=== PATIENT | male | born 1990 | race African-American/Black ===

== ENCOUNTER 2017-04-25 22:12 | Emergency (ER) | payer OTHER ==
[2017-04-26 01:25] VITALS: BP 128/71
--- NOTE | 2017-04-26 01:29 | ED ---
Laceration/Wound HPI - HPI Summary HPI Summary: Patient arrives from [address] [place] [address] with a 6 inch laceration to the right side of the face involving the right ear. Moderate amount of blood loss. Tetanus not UTD. Denies pain at this time. He states he fell onto the metal toilet and cut his face. He denies any other complaints or symptoms. Otherwise healthy. Takes no medications, has no allergies. - History of Current Complaint Stated Complaint: HEAD INJURY Time Seen by Provider: 04/25/17 22:14 Hx Obtained From: Patient Mechanism of Injury: Sharp/Blunt Trauma Onset/Duration: Sudden Onset Aggravating: Movement Alleviating: Compression Timing: Constant Onset Severity: Mild Current Severity: None Pain Intensity: 0 Pain Scale Used: 0-10 Numeric - Allergy/Home Medications Allergies/Adverse Reactions: Allergies Allergy/AdvReac Type Severity Reaction Status Date / Time No Known Allergies Allergy Verified 04/26/17 01:05 PMH/Surg Hx/FS Hx/Imm Hx Previously Healthy: Yes - Immunization History Date of Tetanus Vaccine: unknown Hx Pertussis Vaccination: No Immunizations Up to Date: Unable to Obtain/Confirm Infectious Disease History: No Infectious Disease History: Denies: Traveled Outside the [place] in Last 30 Days - Social History Occupation: Unemployed Lives: Alone - inmate Alcohol Use: Occasionally Hx Substance Use: No Substance Use Type: Reports: None Hx Tobacco Use: No Smoking Status (MU): Never Smoked Tobacco Review of Systems Constitutional: Negative Negative: Fever, Chills, Fatigue Eyes: Negative Cardiovascular: Negative Respiratory: Negative Genitourinary: Negative Positive: no symptoms reported, see HPI Musculoskeletal: Negative Positive: Other Neurological: Negative All Other Systems Reviewed And Are Negative: Yes Physical Exam Triage Information Reviewed: Yes Vital Signs On Initial Exam: Initial Vitals Temp Pulse Resp BP Pulse Ox 99 F 95 18 137/76 100 04/25/17 22:19 04/25/17 22:19 04/25/17 22:19 04/25/17 22:19 04/25/17 22:19 Vital Signs Reviewed: Yes Appearance: Positive: Well-Appearing, Well-Nourished Skin: Positive: Warm, Skin Color Reflects Adequate Perfusion Head/Face: Positive: Normal Head/Face Inspection Eyes: Positive: EOMI, VICTOR M, Conjunctiva Clear Neck: Positive: Supple, No Lymphadenopathy Respiratory/Lung Sounds: Positive: Clear to Auscultation, Breath Sounds Present Cardiovascular: Positive: RRR, Pulses are Symmetrical in both Upper and Lower Extremities Musculoskeletal: Positive: Normal, Strength/ROM Intact Neurological: Positive: Speech Normal Psychiatric: Positive: Normal, Affect/Mood Appropriate AVPU Assessment: Alert - [place] Coma Scale Coma Scale Total: 15 Procedures - Laceration/Wound Repair 1 Location: face Description: Linear Anesthesia: Local Betadine Prep?: No Laceration/Wound Explored: clean Closure: Single Layer Debridement: minimal Suture Type: Prolene Number of Sutures: 35 Layer Closure?: No Sterile Dressing Applied?: Yes Diagnostics - Vital Signs Vital Signs Temp Pulse Resp BP Pulse Ox 04/25/17 22:19 99 F 95 18 137/76 100 - Laboratory Lab Statement: Any lab studies that have been ordered have been reviewed, and results considered in the medical decision making process. Laceration Repair Course/Dx - Course Course Of Treatment: Timeout obtained. Cleansed wound. Irrigated with 100CC's normal saline. Lidocaine without epi as local anesthetic - 10ml. 6-0/5-0 non- absorbable prolene. 35 sutures placed using simple interrupted technique. Patient tolerated well. The posterior ear was appropriated well and closed using 6-0. [place] epithelial sutured without cartilage involvement. Skin behind the ear closed with 5-0. Xeroform gauze packed with gauze in the anterior and posterior portion of the ear. Compression dressing placed to prevent auricular hematoma. Patient is encouraged to change out xeroform gauze x 3 days and continue 24 hours with compression. RN at facility will change dressing. If hematoma develops, will return to ED or follow up with ENT. Patient agrees and is OK for discharge.gauze to the Cleaned and dressed wound with telfa dressing. NV exam WNL. Sutures out in 5 days. Return precautions given. Patient OK with discharge. - Differential Dx Differental Diagnoses: Laceration - Clinical Impression Provider Diagnoses: Facial laceration Discharge - Discharge Plan Condition: Stable Disposition: HOME Patient Education Materials: Laceration (ED) Referrals: Julio César CASTANEDA,Robert Nino [Primary Care Provider] - Additional Instructions: Suture removal in 5-6 days Dressing to face may be removed tomorrow Dressing to ear removed and replaced with new gauze tomorrow. Keep gauze inside the upper helix and behind the ear, then compress with coban or other gauze The ear needs to be kept compressed for 3-4 days to prevent an auricular hematoma If this occurs, the ear likely will need to be drained Wound checks daily by RN
== END 2017-04-26 01:22 | disposition home or self-care (01) ==
LOC: ED 22:12
DX: S01.81XA Laceration without foreign body of other part of head, initial encounter (principal); W18.00XA Striking against unspecified object with subsequent fall, initial encounter; Y93.9 Activity, unspecified; Y92.9 Unspecified place or not applicable
CPT/HCPCS: 12001; 99283